=== PATIENT | male | born 1975 | race Two or more races ===

== ENCOUNTER 2016-05-04 10:14 | Emergency (ER) | payer OTHER ==
[2016-05-04] MEDS ORDERED: SODIUM CHLORIDE 0.9% 1,000 ML ONE (13:19)
== END 2016-05-04 15:55 | disposition home or self-care (01) ==
LOC: ER 10:14
DX: N20.1 Calculus of ureter (principal)
CPT/HCPCS: 36415; 74176; 80053; 81001; 85025; 96360; 96361